=== PATIENT | male | born 1950 | race Caucasian/White ===

== ENCOUNTER 2020-11-24 13:43 | Outpatient (CLI) | payer MEDICARE, SELFPAY ==
--- NOTE | ~2020-11-24 | XR_ITS ---
EXAMINATION: XR ankle RT min 3V DATE: 11/24/2020 14:05 INDICATION: Chronic right ankle pain. TECHNIQUE: 4 views of right ankle were obtained. COMPARISON: None. FINDINGS: There is severe inversion of talus with respect to the ankle mortise with the talar dome ar ticulates with the distal fibula rather than the tibial plafond. No fracture. 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 Osteopenia is noted. IMPRESSION: 1. Severe inversion of talus with respect to the ankle mortise with moderate osteoarthritis of tibiot alar joint. Reviewed, dictated and finalized at location A. IMPRESSION: 1. Severe inversion of talus with respect to the ankle mortise with moderate os teoarthritis of tibiotalar joint.
== END 2020-11-24 13:44 | disposition home or self-care (01) ==
LOC: ANHBWCIMG 13:46
PROVIDERS: Visit Provider Orthopaedic Surgery
DX: M19.071 Primary osteoarthritis, right ankle and foot (principal)
CPT/HCPCS: 73610